=== PATIENT | female | born 1950 | race African-American/Black ===

== ENCOUNTER → 2020-11-02 | Outpatient (CLI) | payer MEDICARE, OTHER ==
--- NOTE | 2020-11-02 14:33 | RAD ---
PA and lateral chest. HISTORY: Chest pain PA and lateral views were taken of the chest. Patient's taken a poor inspiration especially on the la teral view. There is no pleural effusion. Heart is normal in size. There are no confluent infiltrates . IMPRESSION: 1. Poor inspiration especially on the lateral view. 2. No confluent infiltrates. Electronically signed by: Tee Albarado MD (11/02/2020 2:30 PM) [id number]
[2020-11-02 14:57] LABS: ALBUMIN 3.4 g/dL (3.4-5.0); ALBUMIN/GLOBULIN RATIO 0.8 (1.0-1.7); CALCIUM 9.1 mg/dL (8.5-10.1); CREATININE 1.2 mg/dL (0.6-1.0); GFR 53.4; POTASSIUM 4.3 mmol/L (3.5-5.1); TOTAL BILIRUBIN 0.4 mg/dL (0.2-1.0); TOTAL PROTEIN 7.8 g/dL (6.4-8.2)
[2020-11-02 14:59] LABS: BASO % 1 % (0-3); EOS # 0.1 x10^3/uL (0.0-0.7); EOS % 4 % (0-3); HEMATOCRIT 44.2 % (36.0-47.0); HEMOGLOBIN 14.4 g/dL (12.0-15.5); LYMPH # 1.7 x10^3/uL (1.0-4.8); LYMPH % 47 % (24-48); MEAN CORPUSCULAR HEMOGLOBIN 30 pg (25-35); MEAN CORPUSCULAR HGB CONC 33 g/dL (31-37); MEAN CORPUSCULAR VOLUME 91 fL (79-100); MONO # 0.4 x10^3/uL (0.0-1.1); MONO % 11 % (0-9); NEUT # 1.4 x10^3uL (1.8-7.7); NEUT % 38 % (31-73); PLATELET COUNT 347 x10^3/uL (140-400); RED BLOOD COUNT 4.86 x10^6/uL (3.50-5.40); RED CELL DISTRIBUTION WIDTH 14.7 % (11.5-14.5); WHITE BLOOD COUNT 3.6 x10^3/uL (4.0-11.0)
--- NOTE | 2020-11-02 15:04 | RAD ---
Exam: Ultrasound abdomen limited Indication: Right upper quadrant pain Technique: Real-time grayscale and color Doppler images of the right upper quadrant were obtained by the department network operations technician. Comparisons: None FINDINGS: Liver contour is normal. Hepatopedal flow noted in the portal vein. Gallbladder is absent. Common bile duct measures 3 mm in diameter. Right kidney measures 8.8 cm in length. No hydronephrosis. Visualized portions aorta and IVC are unremarkable. IMPRESSION: 1. Cholecystectomy changes. 2. Normal sonographic appearance the liver. 3. No right-sided hydronephrosis. Electronically signed by: Michelle Obrien MD (11/02/2020 3:02 PM) ELANA
== END ==
LOC: US 13:43
PROVIDERS: ATTEND Specialist
DX: R07.9 Chest pain, unspecified (principal); R10.11 Right upper quadrant pain; Z90.49 Acquired absence of other specified parts of digestive tract
CPT/HCPCS: 36415; 71046; 76705; 80053; 84484; 85025